=== PATIENT | male | born 1985 | race African-American/Black ===

== ENCOUNTER 2016-12-09 18:14 | Emergency (ER) | payer SELFPAY ==
[~2016-12-09] VITALS: Ht 170.2 cm; Wt 73.0 kg
[2016-12-09] MEDS ORDERED: KETOROLAC 60MG/2ML VIAL IM ONE (23:45)
[2016-12-09] MEDS ORDERED: CEFTRIAXONE SODIUM 1 G/VIAL IM ONE (23:45)
[2016-12-09] MEDS ORDERED: LIDOCAINE HCL 1% 20ML VIAL (Pyxis) INJ INFIL ONE (23:45)
[2016-12-10 00:02] VITALS: BP 123/61
== END 2016-12-10 00:25 | disposition home or self-care (01) ==
LOC: ER 18:14
DX: S02.5XXA Fracture of tooth (traumatic), initial encounter for closed fracture (principal); K04.7 Periapical abscess without sinus; K02.9 Dental caries, unspecified; X58.XXXA Exposure to other specified factors, initial encounter; Y93.89 Activity, other specified; Y92.9 Unspecified place or not applicable; Y99.8 Other external cause status
CPT/HCPCS: 96372; 99284; J0696; J1885; J3490